=== PATIENT | female | born 1980 | race Caucasian/White ===

== ENCOUNTER → 2017-06-12 17:18 | Outpatient (CLI) | payer MEDICAID ==
[2016-07-03 08:36] VITALS: BMI 31.8
[~2017-06-12 17:18] MED LIST: ALDACTONE25 MG PO; ARMOUR THYROID60 M1 PO; CLIMARA 0.0.075 MG/P TRANSDERM; GLUCOPHAGE1000 MG PO; HYDROCODON-ACE1 EAC7 PO; PROMETRIUM100 MG PO; XANAX0.5 MG PO
== END | disposition home or self-care (01) ==
LOC: D.MAMMO 16:00
DX: Z12.31 Encounter for screening mammogram for malignant neoplasm of breast (principal)

== ENCOUNTER 2019-11-04 11:57 | Emergency (ER) | payer BC ==
[~2019-11-04] VITALS: Ht 161.3 cm; Wt 92.3 kg
[2019-11-04 12:12] VITALS: Ht 161.3 cm; Wt 92.3 kg
[2019-11-04 12:34] LABS: BASOPHILS 0.3 % (0-2); HEMATOCRIT 42.6 % (36.0-48.0); HEMOGLOBIN 14.2 g/dL (12-16); IMMATURE GRANULOCYTES 0.3 % (0-5); LYMPHOCYTES 28.7 % (15-50); MCH 31.5 pg (26.0-34.0); MCHC 33.3 g/dL (31.0-37.0); MCV 94.5 fL (80.0-100.0); MONOCYTES 8.5 % (2-11); NEUTROPHILS 60.2 % (40-80); PLATELET COUNT 274 10x3/uL (130-400); RBC 4.51 10x6/uL (4.00-5.40); RDW 13.5 % (11.5-14.5); WBC 9.4 10x3/uL (4.8-10.8)
[2019-11-04 12:44] LABS: CALC OSMOLALITY 278 mosm/kg (275-300); CALCIUM 8.8 mg/dL (8.5-10.1); CARBON DIOXIDE 25.6 mmol/L (21.0-32.0); CHLORIDE - SERUM 106 mmol/L (98-107); CREATININE - SERUM 0.8 mg/dL (0.6-1.3); GLUCOSE 100 mg/dL (74-106); SODIUM 141 mmol/L (136-145); UREA NITROGEN 8 mg/dL (7-18); eGFR NON AFRICAN AMERICAN 84 mL/min (90-120)
[2019-11-04 12:46] LABS: APTT 29.5 SECONDS (22.8-39.4); INR 0.94 (0.85-1.17); PROTIME 12.6 SECONDS (11.6-15.0)
[2019-11-04 12:47] LABS: D-DIMER-QUANTITATIVE < 0.27 ug/mLFEU (0.20-0.54)
[2019-11-04 13:01] LABS: ALBUMIN 3.7 g/dL (3.4-5.0); ALKALINE PHOSPHATASE 127 U/L (46-116); ALT (SGPT) 51 U/L (10-68); BILIRUBIN - TOTAL 0.28 mg/dL (0.2-1.3); CKMB 0.8 U/L (0.0-3.6); CREATINE KINASE 112 UL (21-215); PROTEIN - SERUM 8.1 g/dL (6.4-8.2)
[2019-11-04 13:11] LABS: TROPONIN-I < 0.017 ng/mL (0.000-0.060)
[2019-11-04] MEDS ORDERED: PROTONIX40 MG PO (13:41)
[2019-11-04 16:47] LABS: CKMB 0.9 U/L (0.0-3.6); CREATINE KINASE 98 UL (21-215); TROPONIN-I < 0.017 ng/mL (0.000-0.060)
[2019-11-04 17:25] VITALS: BP 117/70
== END 2019-11-04 17:25 | disposition home or self-care (01) ==
LOC: D.ER 11:57
PROVIDERS: Family Medicine
DX: R07.9 Chest pain, unspecified (principal)

== ENCOUNTER → 2020-01-08 08:13 | Outpatient (CLI) | payer BC ==
[2019-11-04 12:12] VITALS: BMI 35.5
--- NOTE | ~2020-01-08 | ST ---
PATIENT:CHARLES ANNE MEDICAL RECORD: [id number] SEX: F LOCATION:[facility] ORDER #: ADMISSION DATE: 01/08/20 AGE OF PATIENT: 39 REFERRING PHYSICIAN: INTERPRETING PHYSICIAN: LUPE CHIU MD DATE OF SERVICE: 01/08/2020 INDICATION: Angina, shortness of breath. She was exercised on standard Lexiscan protocol with 33 mCi of sestamibi injected at peak stress, 11 mCi used previously for rest images. FINDINGS: Gated SPECT reveals preserved ejection fraction at 64% with good wall motion and thickening and brightening throughout all segments. SPECT imaging Cardiolite was used as myocardial perfusion agent. There is a moderate amount of reversibility anteriorly and apically. This includes the basal, mid, apical anterior segments as well as the apex itself. The degree of reversibility is moderate. OVERALL IMPRESSION: This is an abnormal nuclear stress test. An intermediate to high risk range with a moderate amount of myocardium involved with reversible ischemia anteriorly and apically suggestive of hemodynamically significant coronary artery disease. TRANSINT:[id number] Voice Confirmation ID: [id number] DOCUMENT ID: [id number] LUPE CHIU MD CC: MIGUEL ANGEL FRANKEL MD [id number] DICTATION DATE: 01/09/20 1253 CAR DRIVER: 01/09/20 2109 DEP CLI 01/08/20 [place] [id number] [place] [id number]
[~2020-01-08 08:13] MED LIST changes: +PROTONIX40 MG PO
== END | disposition home or self-care (01) ==
LOC: D.HCCARDIO 08:13
PROVIDERS: ATTEND Internal Medicine Interventional Cardiology
DX: Z03.89 Encounter for observation for other suspected diseases and conditions ruled out (principal)

== ENCOUNTER → 2020-01-21 07:02 | Outpatient (CLI) | payer BC ==
[~2020-01-21] VITALS: Ht 161.3 cm; Wt 89.1 kg
--- NOTE | ~2020-01-21 | OP ---
PATIENT NAME: CHARLES ANNE MEDICAL RECORD: [id number] :[birth year] LOCATION:[facility] ADMISSION DATE: SURGEON: LUPE CHIU MD DATE OF OPERATION: 01/21/2020 DATE OF SERVICE: 01/21/2020 PROCEDURES: 1. Left heart catheterization. 2. Selective coronary angiography. 3. Left ventriculogram. INDICATION: Angina, abnormal nuclear stress test. PROCEDURE IN DETAIL: After informed consent was obtained and after a detailed explanation of risks, benefits as well as alternative therapies, the patient elected to proceed with angiogram and heart catheterization. The right radial area was prepped and draped in normal sterile fashion. Right radial artery was cannulated via modified Seldinger technique with placement of 5-Moldovan sheath. All catheters exchanged through this sheath. FINDINGS: Left ventriculogram was performed in standard 30-degree DUKE view, reveals good cardiac wall motion, ejection fraction estimated at 60%. SELECTIVE CORONARY ANGIOGRAPHY: Left main, left anterior descending, left circumflex, right coronary artery are all smooth-walled vessels with no angiographic evidence of coronary artery disease. OVERALL IMPRESSION: 1. No angiographic evidence of coronary artery disease. 2. Normal left heart pressures, normal left ventricular systolic function. Chest pain is noncardiac in etiology. No further cardiac workup needs to be ascertained. TRANSINT:[id number] Voice Confirmation ID: [id number] DOCUMENT ID: [id number] LUPE CHIU MD CC: [id number] DICTATION DATE: 01/21/20 0950 SOFTWARE ENGINEER ADVISOR: 01/21/20 1249 REG [facility] [address] [place] [address]
--- NOTE | ~2020-01-21 | HEMODYNAMI ---
PATIENT:CHARLES ANNE MEDICAL RECORD: [id number] : 78 LOCATION:[facility] ADMISSION DATE: 01/21/20 Generatedon:01/21/20209:53 Patient name: CHARLES ANNE Patient #: [id number] SSN: [id number] : 1980 Date of study: 01/21/2020 Page: Of Hemodynamic Procedure Report Patient Data Patient Demographics Procedure consent was obtained First Name: CHARLES Gender: Female Last Name: OMID : 1980 Middle Initial: M Age: 39 year(s) Patient #: [id number] Race: Unknown SSN: [id number] Additional ID: [id number] Contact details Address: [address] [place] [address] State: [place] City: [place] Zip code: [address] Past Medical History Allergies: No allergy information Admission Admission Data Admission Date: 01/21/2020 Admission Time: 7:02 Arrival Date: 01/21/2020 Arrival Time: 0:00 Height (in.): 63 BSA: 1.94 (m2) Height (cm.): 160.02 BMI: 35.61 (kg/m2) Weight (lbs.): 201 Weight (kg.): 91.17 Lab Results Lab Result Date: 01/21/2020 Lab Result Time: 0:00 Biochemistry Name Units Result Min Max BUN mg/dl 8 --(*---)-- 7 18 Creatinine mg/dl 0.9 --(-*--)-- 0.6 1.3 eGFR ml/min 73.22555 *-(----)-- 90 120 NONAFRICAN CBC Name Units Result Min Max Hematocrit % 43.2 --(*---)-- 42 54 Hemoglobin g/dl 13.9 --(*---)-- 13.5 17.5 Procedure Procedure Types Cath Procedure Diagnostic Procedure LHC LHC w/Coronaries Procedure Description Procedure Date Procedure Date: 01/21/2020 Procedure Start Time: 9:40 Procedure End Time: 9:49 Procedure Staff Name Function Bobby Winters MD Performing Physician Tanya Castillo RT Monitor Akhil Schulz RT Scrub Maranda Bobby RN Nurse Procedure Data Cath Procedure Fluoroscopy Diagnostic fluoroscopy Total fluoroscopy Time: 0.7 time: 0.7 min min Diagnostic fluoroscopy Total fluoroscopy dose: 337 dose: 337 mGy mGy Contrast Material Contrast Material Type Amount (ml) Isovue 300 39 Entry Location Entry Primary Successful Side Size Upsize Upsize Entry Closure Bundy ccessful Closure Location (Fr) 1 (Fr) 2 (Fr) Remarks Device Remarks Radial Right 6 Fr Mechanical artery Short Compression Estimated blood loss: 5 ml Diagnostic catheters Device Type Used For End Catheter Placement DIAGNOSTIC [place] 110cm 5 Procedure Fr catheter ([id number]) Procedure Complications No complications Procedure Medications Medication Administration Route Dosage 0.9% NaCl I.V. 100 ml/hr Oxygen etCO2 Nasal cannula 2 l/min Lidocaine 2% added to field 20 Heparin Flush Bag added to field 2 bags (1000units/500ml NS) Radial Cocktail added to field 1 syringe (Verapamil 2mg/Nitro 400mcg/Heparin 1500units) Versed I.V. 2 mg Fentanyl I.V. 50 mcg Versed I.V. 1 mg Fentanyl I.V. 25 mcg Hemodynamics Rest BSA: 1.94 (m2) O2 Consumption: Estimated: 191.16 (ml/min) O2 Consumption indexed : Estimated:98.54 (ml/min/m) Heart Rate: 62 (bpm) Snapshots Pre Cath Intra NCS Post Cath Vital Signs Time Heart Resp SPO2 etCO2 NIBP (mmHg) Rhythm Pain Sedation Rate (ipm) (%) (mmHg) Status Level (bpm) 9:27:07 57 13 100 33 132/73(91) NSR 0 (11) 10(A) , No pain 9:31:26 66 16 100 40.4 114/70(100) NSR 0 (11) 10(A) , No pain 9:35:40 74 23 98 36 118/63(84) NSR 0 (11) 10(A) , No pain 9:39:52 74 22 98 37.5 111/62(82) NSR 0 (11) 10(A) , No pain 9:44:03 98 24 98 33 111/66(82) NSR 0 (11) 10(A) , No pain 9:48:16 87 21 96 36 108/64(86) NSR 0 (11) 10(A) , No pain Medications Time Medication Route Dose Verified Delivered Reason Notes Ef fectiveness by by 9:26:07 0.9% NaCl I.V. 100 Bobby Maranda used for ml/hr Singh Bobby technical solution architect 9:26:14 Oxygen etCO2 2 l/min Bobby Maranda used for Nasal Singh Bobby procedure cannula RN 9:26:18 Lidocaine 2% added 20ml Bobby Bobby for local to vial Singh Winters MD anesthetic field 9:26:22 Heparin Flush added 2 bags Bobby Bobby used for Bag to Singh Winters MD procedure (1000units/500ml field NS) 9:26:30 Radial Cocktail added 1 Bobby Bobby used for (Verapamil to syringe Singh Winters MD procedure 2mg/Nitro field 400mcg/Heparin 1500units) 9:38:24 Versed I.V. 2 mg Bobby Maranda for Singh Bobby sedation RN 9:38:34 Fentanyl I.V. 50 mcg Bobby Maranda for Singh Bobby sedation RN 9:43:35 Versed I.V. 1 mg Bobby Maranda for Singh Bobby sedation RN 9:43:39 Fentanyl I.V. 25 mcg Obbby Maranda for Singh Bobby sedation aligner barrel and receiver Log Time Note 9:02:32 Informed consent obtained and on chart 9:08:21 Procedure Status Elective Heart Cath (OP). 9:08:22 Time tracking: Regular hours (M-F 7:00 - 5:00) 9:08:26 Plan of Care:Hemodynamics will remain stable., Cardiac rhythm will remain stable., Comfort level will be maintained., Respiratory function will remain adequate., Patient/ family verbilizes understanding of procedure., Procedure tolerated without complication., Recovers from procedure without complications.. 9:09:12 H&P Date Dictated: 01/21/2020 Within 30 days and on chart., H&P Addendum completed by physician on day of procedure. (MUST COMPLETE FOR ALL OUTPATIENTS). 9:09:30 Patient allergic to No allergy information 9:13:12 Akhil MALDONADO(R) sent for patient. Start room use. 9:13:24 Lab Result : BUN 8 mg/dl 9:13:24 Lab Result : Creatinine 0.9 mg/dl ::24 Lab Result : eGFR NONAFRICAN 73.95602 ml/min ::24 Lab Result : Hemoglobin 13.9 g/dl ::24 Lab Result : Hematocrit 43.2 % 9:15:45 Patient Weight : 201 lbs 9:15:49 Patient Height : 63 inches 9:15:54 Arrival Date: 01/21/2020 12:00:00 AM 9:16:55 Stress Test: yes; abnormal ANTERIOR AND APICAL 9:25:58 Vital chart was started 9:26:07 0.9% NaCl 100 ml/hr I.V. was administered by Maranda Bobby RN; used for procedure; Verbal order read back and verified. 9:26:14 Oxygen 2 l/min etCO2 Nasal cannula was administered by Maranda Bobby RN; used for procedure; Verbal order read back and verified. 9:26:18 Lidocaine 2% 20ml vial added to field was administered by Bboby Winters MD; for local anesthetic; Verbal order read back and verified. 9:26:22 Heparin Flush Bag (1000units/500ml NS) 2 bags added to field was administered by Bobby Winters MD; used for procedure; Verbal order read back and verified. 9:26:30 Radial Cocktail (Verapamil 2mg/Nitro 400mcg/Heparin 1500units) 1 syringe added to field was administered by oBbby Winters MD; used for procedure; Verbal order read back and verified. 9:29:15 Patient received from Pre/Post Procedure Room to CCL 1 Alert and oriented. Tansferred to table in Supine position. 9:29:16 Warm blankets applied, and lew hugger turned on for patient comfort. 9:29:16 Correct patient and procedure confirmed by team. 9:29:17 Baseline sample Acquired. 9:29:17 ECG and BP/O2 sat monitors applied to patient. 9:29:26 Rhythm: sinus rhythm 9:29:42 Full Disclosure recording started 9:29:51 Pre-procedure instructions explained to patient. 9:29:51 Pre-op teaching completed and patient verbalized understanding. 9:29:53 Family unavailable. 9:29:55 Patient NPO since Midnight. 9:29:56 Is the patient allergic to Iodine/contrast media? No. 9:29:58 Is patient on blood thinner?No 9:29:59 Patient diabetic? No. 9:30:01 Patient not . Patient has had hysterectomy. 9:30:05 Previous problem with sedation/anesthesia? No ? 9:30:07 Snore? Yes 9:30:08 Sleep apnea? No 9:30:09 Deviated septum? No 9:30:09 Opens mouth fully? Yes 9:30:11 Sticks out tongue? Yes 9:30:13 Airway obstruction? No ? 9:30:15 Dentures? No ? 9:30:50 Pre procedure: right dorsailis pedis pulse 1+ Palpable, but thready & weak; easily obliterated 9:30:55 Patient pain scale 0/10 ?. 9:32:03 IV patent on arrival in left hand with 0.9% NaCl at [facility]. 9:32:05 Lab results completed and on chart. 9:32:12 Risk of Mortality: .1 9:32:16 Risk of blood transfusion: .8 9:32:19 Risk of DEEPTHI: .1 9:32:21 Right Radial & Right Groin area was prepped with chlora-prep and draped in sterile fashion 9:32:23 Alarms reviewed by R. N. 9:32:23 Sharps counted by scrub and verified by R.N. 9:32:26 Use device set Radial Dx or PCI 9:32:27 ACIST Syringe (53984) opened to sterile field. 9:32:28 Bag Decanter () opened to sterile field. 9:32:28 ACIST Hand Control (86074) opened to sterile field. 9:32:29 ACIST Manifold (61144) opened to sterile field. 9:32:29 Tegaderm 4 x 4 (1626W) opened to sterile field. 9:32:30 Medline Cath Pack ([id number]) opened to sterile field. 9:32:31 MBrace Wrist Support ([id number]) opened to sterile field. 9:32:33 EMERALD Guide Wire (010-309) opened to sterile field. 9:32:33 SHEATH 6FR RAIN (3521349) opened to sterile field. 9:36:24 Zero performed for pressure channel P1 9:37:31 --------ALL STOP TIME OUT------ 9:37:32 Final Timeout: patient, procedure, and site verified with staff and physician. All members of the team are in agreement. 9:37:33 Right Radial & Right Groin site verified by team. 9:37:36 Fire Safety Assessment: A--An alcohol-based skin anteseptic being used preoperatively., C--Open oxygen or nitrous oxide is being used., D--An ESU, laser, or fiber-optic light is being used. 9:37:39 Physical assessment completed. ASA score P 2 - A patient with mild systemic disease as per Bobby Winters MD. 9:37:44 2) 60-89 Mildly reduced kidney function, and other findings (as for stage 1) point to kidney disease. 9:37:47 Maximum allowable contrast dose (3.7 X eGFR X 0.75)203 ml. 9:37:52 Sedation plan: IV Moderate Sedation Medication:Versed, Fentanyl 9:38:24 Versed 2 mg I.V. was administered by Maranda Bobby RN; for sedation; Verbal order read back and verified. 9:38:34 Fentanyl 50 mcg I.V. was administered by Maranda Bobby RN; for sedation; Verbal order read back and verified. 9:40:52 Procedure started. 9:40:59 Local anesthetic to right radial artery with Lidocaine 2% by Bobby Winters MD.INITIAL ACCESS ONLY 9:42:50 A 6 Fr Short sheath was inserted into the Right Radial artery 9:43:35 Versed 1 mg I.V. was administered by Maranda Bobby RN; for sedation; Verbal order read back and verified. 9:43:39 Fentanyl 25 mcg I.V. was administered by Maranda Bobby RN; for sedation; Verbal order read back and verified. 9:43:47 A DIAGNOSTIC [place] 110cm 5 Fr catheter ([id number]) was advanced over the wire and used for Procedure. 9:43:50 LV gram done using DUKE 9:43:52 Injector settings: Ml/sec: 5, Volume: 15, 9:43:54 LV hemodynamics recorded. 9:43:58 EF : 55 % 9:44:08 LCA angiography performed. 9:44:56 RCA angiography performed. 9:45:03 Catheter removed. 9:45:29 ZEPHYR REGULAR TR BAND (249232) opened to sterile field. 9:45:40 Sheath removed intact; hemostasis achieved with Mechanical Compression to the Right Radial artery. 9:45:42 Procedure ended.(Physican Out) 9:47:10 Fluoroscopy time 00.70 minutes. 9:47:14 Fluoroscopy dose: 337 mGy 9:47:14 Flurop Dose total: 337 9:47:21 Dose Area Product 88919 mGy/cm. 9:47:26 Contrast amount:Isovue 300 39ml. 9:47:30 Maximum allowable dose exceeded? No. 9:47:32 Sharps counted by scrub and verified by R.N. 9:47:35 [place] band inflated with 10cc of air. 9:47:38 Post-procedure physical assessment completed. ASA score P 2 - A patient with mild systemic disease as per Bobby Winters MD. 9:47:43 Post procedure rhythm: sinus rhythm 9:47:45 Estimated blood loss: 5 ml 9:47:47 Post procedure instruction explained to patient.Patient verbalizes understanding. 9:47:47 Patient needs reinforcement of post procedure teaching. 9:48:29 Procedure and supply charges have been captured, reviewed, submitted and are correct. 9:48:31 Procedure Complication : No complications 9:48:33 Vital chart was stopped 9:48:41 [facility] Findings: mild to moderate CAD (<70%) 9:48:43 Operative report dictated upon procedure completion. 9:48:46 See physician's report for complete and final results. 9:48:49 Report given to Pre/Post Procedure Room. 9:48:52 Patient transfered to Pre/Post Procedure Room with Bed. 9:49:59 Procedure ended. 9:49:59 Full Disclosure recording stopped 9:50:01 End room use (Document Last) 9:52:45 End room use (Document Last) 9:53:19 End room use (Document Last) Device Usage Item Name Manufacture Quantity Catalog Hospital Part Current Minima l Lot# / Number Charge Number Stock Stock Serial# Code ACIST Acist 1 80973 [id number] [id number] 226030 20 Syringe Medical (41642) Systems Inc Bag Microtek 1 017004 75182 010795 5 Decanter Medical Inc. () ACIST Hand Acist 1 56030 489590 263199 547937 5 Control Medical (16076) Systems Inc ACIST Acist 1 71262 239555 472082 310204 5 Manifold Medical (89575) Systems Inc Tegaderm 4 3M 1 1626W 827227 431961 771232 5 x 4 (1626W) Medline Medline 1 [id number] 315152 59192 171448 5 Cath Pack ([id number]) MBrace Advanced 1 140-0250-00 265774 28859 460592 5 Wrist Vascular Support Dynamics (699284321) EMERALD Cardinal 1 502-455 924337 599926 478590 5 Guide Wire Health (502-455) SHEATH 6FR Cardinal 1 7209300 947515 6622830 520518 5 [facility] (7198537) DIAGNOSTIC Terumo 1 40-1406 713459 035532 186317 5 [place] 110cm 5 Fr catheter (396849) ZEPHYR Cardinal 1 348010 260298 6448560 975606 5 REGULAR TR Health BAND (195643) Signature Audit [place] Stage Time Signature Unsigned Intra-Procedure 01/21/2020 Tanya Castillo 9:52:45 AM RT(R) Intra-Procedure 01/21/2020 Maranda Bobby 9:53:19 AM RN Intra-Procedure 01/21/2020 Bobby Winters 9:53:40 AM [facility] [address] [facility] [place] [address]
[~2020-01-21 07:02] MED LIST changes: +CARAFATE1 G PO; +LEXAPRO20 MG PO
[2020-01-21 08:04] VITALS: BP 104/56; Ht 161.3 cm; Wt 89.1 kg
[2020-01-21 08:07] LABS: BASOPHILS 0.3 % (0-2); EOSINOPHILS 2.4 % (0-7); HEMATOCRIT 43.2 % (36.0-48.0); HEMOGLOBIN 13.9 g/dL (12-16); IMMATURE GRANULOCYTES 0.2 % (0-5); LYMPHOCYTES 21.1 % (15-50); MCH 30.9 pg (26.0-34.0); MCHC 32.2 g/dL (31.0-37.0); MEAN PLATELET VOLUME 10.1 fL (7.4-10.4); MONOCYTES 6.8 % (2-11); NEUTROPHILS 69.2 % (40-80); PLATELET COUNT 261 10x3/uL (130-400); RDW 13.4 % (11.5-14.5); WBC 8.7 10x3/uL (4.8-10.8)
[2020-01-21 08:19] LABS: ANION GAP 11.7 mmol/L (8-16); CALCIUM 8.5 mg/dL (8.5-10.1); CHOL - HDL RATIO 6.3 ratio (2.3-4.1); CREATININE - SERUM 0.9 mg/dL (0.6-1.3); LDL-HDL RATIO 4.8 ratio (1.5-3.5); POTASSIUM - SERUM 3.7 mmol/L (3.5-5.1)
--- NOTE | 2020-01-21 10:10 | NUR ---
REC TO ROOM VIA STRETCHER FROM HOME DESIGNER. R RADIAL BAND INTACT, BRISK CAP REFILL, PULSE PALP ABOVE AND BELOW BAND. BP 113/61, NSR 64, SAT 99% 2LNC. AT BEDSIDE.
--- NOTE | 2020-01-21 10:45 | NUR ---
R RADIAL ZBAND INTACT OVER R RADIAL ACCESS SITE. NO S/S BLEEDING OR HEMATOMA. 1ML AIR REMOVED ZBAND WITHOUT BLEEDING.
--- NOTE | 2020-01-21 11:00 | NUR ---
R ZBAND NO S/S BLEEDING OR HEMATOMA. 1 ML AIR REMOVED. PT WADE SIPS WATER.
--- NOTE | 2020-01-21 11:15 | NUR ---
3ML AIR REMOVED Z BAND TOTAL 5 ML OUT. NO S/S BLEEDING OR HEMATOMA. BP 96/50, NSR 64. RA SAT 95%
--- NOTE | 2020-01-21 11:30 | NUR ---
2 ML AIR REMOVED, ZBAND DEFLATED. NO S/S BLEEDING OR HEMATOMA. DR CHIU HERE SPEAKING W PT
--- NOTE | 2020-01-21 11:40 | NUR ---
IV REMOVED TIP INTACT, MONITORING DC. R WRIST REMAINS NO S/S BLEEDING OR HEMATOMA. PT DRESSING W SPOUSE'S HELP.
--- NOTE | 2020-01-21 11:55 | NUR ---
DC INSTRUCTIONS REVIEWED W PT AND SPOUSE AFTER Z BAND REMOVED, NO S/S BLEEDING OR HEMATOMA, AND ACCESS SITE COVERED W TEGADERM AND 2X2 GAUZE. PT DC HOME TO PRIVATE VEHICLE VIA WHEELCHAIR. PT HAS ALL BELONGINGS.
== END | disposition home or self-care (01) ==
LOC: D.CATH 07:02
PROVIDERS: ATTEND Internal Medicine Interventional Cardiology
DX: I20.9 Angina pectoris, unspecified (principal); R94.30 Abnormal result of cardiovascular function study, unspecified; R07.9 Chest pain, unspecified; R06.02 Shortness of breath; Z82.49 Family history of ischemic heart disease and other diseases of the circulatory system; Z72.0 Tobacco use